=== PATIENT | female | born 1930 | race Caucasian/White ===

== ENCOUNTER 2017-10-25 09:17 | Emergency (ER) | payer MEDICARE ==
[2016-10-06 13:04] VITALS: BMI 28.6
[~2017-10-25 09:17] MED LIST: BACTRIM DS TABL1 TAB PO; CARTIA XT120 MG PO; COUMADIN5 MG PO; FUROSEMIDE20 MG; HCTZ25 MG PO; HYDROCODONE-APA1 TAB PO; PACERONE200 MG PO
== END 2017-10-25 12:35 | disposition home or self-care (01) ==
LOC: D.ER 09:17
DX: M54.5 Low back pain (principal); M62.838 Other muscle spasm; S39.012A Strain of muscle, fascia and tendon of lower back, initial encounter; X58.XXXA Exposure to other specified factors, initial encounter; Y93.89 Activity, other specified; Y92.89 Other specified places as the place of occurrence of the external cause

== ENCOUNTER 2017-10-27 11:10 | Inpatient (IN) | payer MEDICARE ==
[~2017-10-27] VITALS: Ht 165.1 cm; Wt 68.7 kg
--- NOTE | ~2017-10-27 | OP ---
PATIENT NAME: NORMA LAGOS MEDICAL RECORD: [id number] :30 LOCATION:[id number] ADMISSION DATE:10/27/17 SURGEON: JAI WILKINSON MD DATE OF OPERATION: 10/31/2017 PREOPERATIVE DIAGNOSIS: T11 compression fracture secondary to osteoporosis. POSTOPERATIVE DIAGNOSIS: T11 compression fracture secondary to osteoporosis. PROCEDURE: T11 kyphoplasty and T11 bone biopsy with methyl methacrylate bone cement. DESCRIPTION AND TECHNIQUE: After induction of general endotracheal anesthesia, the patient was rolled prone on chest and hip rolls. The thoracic spine was prepped and draped in usual sterile fashion. Fluoroscopic x-ray and Jamshidi needle was used to cannulate the pedicles at T11. Kyphoplasty balloon was advanced through the cannula and inflated under fluoroscopic control. The balloon was deflated and then the void created was back filled with methyl methacrylate bone cement. Good position of the cement was confirmed with fluoroscopic x-ray. The cannula was withdrawn. Steri-Strips used to close the single stab incision. A sterile dressing was applied to the wound. The patient was awakened in good condition and taken to recovery. All counts were reported as correct. Estimated blood loss was minimal. TRANSINT:[id number] Voice Confirmation ID: [id number] DOCUMENT ID: [id number] JAI WILKINSON MD at 1420 CC: [id number] DICTATION DATE: 10/31/17 1450 MINGLE OPERATOR: 10/31/17 1540 DIS IN 11/06/17 [place] [id number] [place] [id number]
[2017-10-27 12:39] LABS: APPEARANCE CLEAR (CLEAR); COLOR YELLOW (YELLOW); SPECIFIC GRAVITY 1.015 (1.005-1.020)
[2017-10-27 12:40] LABS: BILIRUBIN NEGATIVE (NEGATIVE); GLUCOSE NEGATIVE (NEGATIVE); KETONE LARGE mg/dL (NEGATIVE); NITRITE NEGATIVE (NEGATIVE); PROTEIN 1+ mg/dL (NEGATIVE); UROBILINOGEN NORMAL (NORMAL)
[2017-10-27 12:41] LABS: AMORPHOUS SEDIMENT <1+ /lpf (NONE SEEN); BACTERIA FEW /hpf (NONE SEEN); EPITHELIAL CELLS 0-5 /hpf (0-5); MUCUS <1+ /lpf (NONE SEEN); RED CELLS - URINE 0-5 /hpf (0-5)
[2017-10-27 18:02] VITALS: BP 134/74; BMI 28.3
[2017-10-27 19:15] VITALS: BP 136/62
[2017-10-27] MEDS ORDERED: ZANAFLEX2 M1 PO (21:01)
[2017-10-27] MEDS ORDERED: KLONOPIN0.5 MG PO (21:03)
[2017-10-27] MEDS ORDERED: TORSEMIDE20 MG PO (21:08)
[2017-10-27] MEDS ORDERED: NORCO 7.5/325 T1 TA1 PO (21:09)
[2017-10-27 22:34] LABS: BASOPHILS 0.3 % (0-2); EOSINOPHILS 0.3 % (0-7); HEMATOCRIT 41.9 % (36.0-48.0); HEMOGLOBIN 13.3 g/dL (12-16); IMMATURE GRANULOCYTES 0.1 % (0-5); LYMPHOCYTES 13.8 % (15-50); MCH 29.1 pg (26.0-34.0); MCHC 31.7 g/dL (31.0-37.0); MCV 91.7 fL (80.0-100.0); MEAN PLATELET VOLUME 11.4 fL (7.4-10.4); MONOCYTES 7.1 % (2-11); NEUTROPHILS 78.4 % (40-80); PLATELET COUNT 276 10x3/uL (130-400); RBC 4.57 10x6/uL (4.00-5.40); RDW 14.8 % (11.5-14.5); WBC 9.5 10x3/uL (4.8-10.8)
[2017-10-27 22:39] LABS: INR 2.2 (0.85-1.17); PROTIME 23.8 SECONDS (11.6-15.0)
[2017-10-27 22:43] LABS: ANION GAP 9.1 mmol/L (8-16); CALCIUM 8.6 mg/dL (8.5-10.1); CARBON DIOXIDE 33.5 mmol/L (21.0-32.0); CREATININE - SERUM 1.2 mg/dL (0.6-1.3); POTASSIUM - SERUM 3.6 mmol/L (3.5-5.1)
[2017-10-28 00:02] VITALS: BP 145/65
[2017-10-28 04:30] VITALS: BP 130/53
[2017-10-28 06:33] LABS: BASOPHILS 0.4 % (0-2); HEMATOCRIT 43.4 % (36.0-48.0); HEMOGLOBIN 13.8 g/dL (12-16); IMMATURE GRANULOCYTES 0.1 % (0-5); LYMPHOCYTES 18.8 % (15-50); MCH 29.2 pg (26.0-34.0); MCHC 31.8 g/dL (31.0-37.0); MCV 91.8 fL (80.0-100.0); MEAN PLATELET VOLUME 11.5 fL (7.4-10.4); MONOCYTES 7.3 % (2-11); NEUTROPHILS 72.4 % (40-80); PLATELET COUNT 278 10x3/uL (130-400); RBC 4.73 10x6/uL (4.00-5.40); RDW 14.9 % (11.5-14.5); WBC 8.4 10x3/uL (4.8-10.8)
[2017-10-28 06:51] LABS: ANION GAP 10.9 mmol/L (8-16); CALCIUM 8.9 mg/dL (8.5-10.1); CARBON DIOXIDE 29.5 mmol/L (21.0-32.0); CREATININE - SERUM 1.1 mg/dL (0.6-1.3); POTASSIUM - SERUM 3.4 mmol/L (3.5-5.1)
[2017-10-28 07:41] VITALS: BP 134/70
[2017-10-28 10:07] VITALS: Ht 165.1 cm; Wt 68.7 kg
[2017-10-28 12:32] VITALS: BP 194/89
[2017-10-28 13:10] VITALS: BP 154/84
[2017-10-28 19:25] VITALS: BP 137/70
[2017-10-29 03:07] VITALS: BP 123/58
[2017-10-29 05:04] LABS: BASOPHILS 0.4 % (0-2); EOSINOPHILS 1.5 % (0-7); HEMATOCRIT 42.4 % (36.0-48.0); HEMOGLOBIN 13.2 g/dL (12-16); IMMATURE GRANULOCYTES 0.1 % (0-5); LYMPHOCYTES 16.7 % (15-50); MCH 28.8 pg (26.0-34.0); MCHC 31.1 g/dL (31.0-37.0); MCV 92.4 fL (80.0-100.0); MEAN PLATELET VOLUME 11.4 fL (7.4-10.4); MONOCYTES 8.7 % (2-11); NEUTROPHILS 72.6 % (40-80); PLATELET COUNT 271 10x3/uL (130-400); RBC 4.59 10x6/uL (4.00-5.40); RDW 14.8 % (11.5-14.5); WBC 6.9 10x3/uL (4.8-10.8)
[2017-10-29 05:14] LABS: INR 2.43 (0.85-1.17); PROTIME 25.8 SECONDS (11.6-15.0)
[2017-10-29 05:27] LABS: ANION GAP 7.1 mmol/L (8-16); CALCIUM 8.8 mg/dL (8.5-10.1); CARBON DIOXIDE 31.3 mmol/L (21.0-32.0); CREATININE - SERUM 1.1 mg/dL (0.6-1.3); POTASSIUM - SERUM 3.4 mmol/L (3.5-5.1)
[2017-10-29 07:20] VITALS: BP 136/85
[2017-10-29 12:05] VITALS: BP 113/53
[2017-10-29 19:15] VITALS: BP 136/60
[2017-10-29 23:43] VITALS: BP 137/69
[2017-10-30 04:15] VITALS: BP 148/73
[2017-10-30 06:48] LABS: BASOPHILS 0.4 % (0-2); EOSINOPHILS 1.3 % (0-7); HEMATOCRIT 43.7 % (36.0-48.0); HEMOGLOBIN 13.6 g/dL (12-16); IMMATURE GRANULOCYTES 0.3 % (0-5); LYMPHOCYTES 23.5 % (15-50); MCH 29.1 pg (26.0-34.0); MCHC 31.1 g/dL (31.0-37.0); MCV 93.6 fL (80.0-100.0); MEAN PLATELET VOLUME 11.7 fL (7.4-10.4); MONOCYTES 8.1 % (2-11); NEUTROPHILS 66.4 % (40-80); PLATELET COUNT 289 10x3/uL (130-400); RBC 4.67 10x6/uL (4.00-5.40); RDW 15.1 % (11.5-14.5)
[2017-10-30 07:05] LABS: PROTIME 21.3 SECONDS (11.6-15.0)
[2017-10-30 07:06] LABS: INR 1.91 (0.85-1.17)
[2017-10-30 07:07] LABS: ANION GAP 9.2 mmol/L (8-16); CALCIUM 8.6 mg/dL (8.5-10.1); CREATININE - SERUM 1.1 mg/dL (0.6-1.3); POTASSIUM - SERUM 3.2 mmol/L (3.5-5.1)
[2017-10-30 08:49] VITALS: BP 157/86
[2017-10-30 12:56] VITALS: BP 148/82
[2017-10-30 16:15] VITALS: BP 165/75
[2017-10-30 19:56] VITALS: BP 174/82
[2017-10-30 23:32] VITALS: BP 156/74
[2017-10-31 03:49] VITALS: BP 175/83
[2017-10-31 06:26] LABS: BASOPHILS 0.3 % (0-2); EOSINOPHILS 0.6 % (0-7); HEMATOCRIT 46.7 % (36.0-48.0); HEMOGLOBIN 14.7 g/dL (12-16); IMMATURE GRANULOCYTES 0.3 % (0-5); LYMPHOCYTES 17.1 % (15-50); MCH 29.4 pg (26.0-34.0); MCHC 31.5 g/dL (31.0-37.0); MCV 93.4 fL (80.0-100.0); MEAN PLATELET VOLUME 11.3 fL (7.4-10.4); MONOCYTES 7.8 % (2-11); NEUTROPHILS 73.9 % (40-80); RDW 15.1 % (11.5-14.5)
[2017-10-31 06:27] LABS: WBC 10.8 10x3/uL (4.8-10.8)
[2017-10-31 06:28] LABS: PLATELET COUNT 353 10x3/uL (130-400)
[2017-10-31 06:41] LABS: PROTIME 17.5 SECONDS (11.6-15.0)
[2017-10-31 06:45] LABS: INR 1.48 (0.85-1.17)
[2017-10-31 06:47] LABS: ANION GAP 9.7 mmol/L (8-16); CALCIUM 9.1 mg/dL (8.5-10.1); CARBON DIOXIDE 32.9 mmol/L (21.0-32.0); POTASSIUM - SERUM 3.6 mmol/L (3.5-5.1)
[2017-10-31 06:53] LABS: CREATININE - SERUM 0.8 mg/dL (0.6-1.3)
[2017-10-31 09:26] VITALS: BP 176/92
[2017-10-31 12:19] VITALS: BP 168/88
[2017-10-31 15:01] VITALS: BP 153/84
[2017-10-31 20:00] VITALS: BP 164/92
[2017-11-01] VITALS: BP 129/61
[2017-11-01 06:08] LABS: BASOPHILS 0.2 % (0-2); HEMATOCRIT 45.3 % (36.0-48.0); HEMOGLOBIN 14.4 g/dL (12-16); IMMATURE GRANULOCYTES 0.2 % (0-5); LYMPHOCYTES 15.1 % (15-50); MCH 29.4 pg (26.0-34.0); MCHC 31.8 g/dL (31.0-37.0); MCV 92.4 fL (80.0-100.0); MONOCYTES 9.2 % (2-11); NEUTROPHILS 74.3 % (40-80); PLATELET COUNT 347 10x3/uL (130-400); RDW 15.4 % (11.5-14.5); WBC 9.7 10x3/uL (4.8-10.8)
[2017-11-01 06:22] LABS: INR 1.41 (0.85-1.17); PROTIME 16.8 SECONDS (11.6-15.0)
[2017-11-01 06:29] VITALS: BP 127/85
[2017-11-01 06:38] LABS: ANION GAP 10.5 mmol/L (8-16); CALCIUM 8.9 mg/dL (8.5-10.1); POTASSIUM - SERUM 3.5 mmol/L (3.5-5.1)
[2017-11-01 08:37] VITALS: BP 135/75
[2017-11-01 12:35] VITALS: BP 147/73
[2017-11-01 15:34] VITALS: BP 139/64
[2017-11-01 20:00] VITALS: BP 136/73
[2017-11-02] VITALS: BP 133/58
[2017-11-02 04:00] VITALS: BP 142/68
[2017-11-02 06:07] LABS: BASOPHILS 0.3 % (0-2); EOSINOPHILS 1.4 % (0-7); HEMATOCRIT 44.7 % (36.0-48.0); HEMOGLOBIN 14.1 g/dL (12-16); IMMATURE GRANULOCYTES 0.4 % (0-5); LYMPHOCYTES 19.5 % (15-50); MCH 29.3 pg (26.0-34.0); MCHC 31.5 g/dL (31.0-37.0); MCV 92.7 fL (80.0-100.0); MONOCYTES 6.7 % (2-11); NEUTROPHILS 71.7 % (40-80); PLATELET COUNT 327 10x3/uL (130-400); RBC 4.82 10x6/uL (4.00-5.40); RDW 15.4 % (11.5-14.5); WBC 10.9 10x3/uL (4.8-10.8)
[2017-11-02 06:31] LABS: ALBUMIN 2.7 g/dL (3.4-5.0); ANION GAP 9.1 mmol/L (8-16); BILIRUBIN - TOTAL 0.81 mg/dL (0.2-1.3); CALCIUM 8.7 mg/dL (8.5-10.1); CARBON DIOXIDE 32.3 mmol/L (21.0-32.0); POTASSIUM - SERUM 3.4 mmol/L (3.5-5.1)
[2017-11-02 06:37] LABS: INR 1.34 (0.85-1.17); PROTIME 16.1 SECONDS (11.6-15.0)
[2017-11-02 09:26] VITALS: BP 123/58
[2017-11-02 13:11] VITALS: BP 128/56
[2017-11-02 16:54] VITALS: BP 120/58
[2017-11-02 20:00] VITALS: BP 136/62
[2017-11-03 04:00] VITALS: BP 161/68
[2017-11-03 06:00] LABS: BASOPHILS 0.2 % (0-2); HEMATOCRIT 45.1 % (36.0-48.0); HEMOGLOBIN 14.3 g/dL (12-16); IMMATURE GRANULOCYTES 0.3 % (0-5); LYMPHOCYTES 18.6 % (15-50); MCH 29.5 pg (26.0-34.0); MCHC 31.7 g/dL (31.0-37.0); MEAN PLATELET VOLUME 11.5 fL (7.4-10.4); MONOCYTES 7.6 % (2-11); NEUTROPHILS 72.3 % (40-80); PLATELET COUNT 349 10x3/uL (130-400); RBC 4.85 10x6/uL (4.00-5.40); RDW 15.5 % (11.5-14.5); WBC 12.3 10x3/uL (4.8-10.8)
[2017-11-03 06:08] LABS: INR 1.52 (0.85-1.17); PROTIME 17.8 SECONDS (11.6-15.0)
[2017-11-03 06:30] LABS: ALBUMIN 2.8 g/dL (3.4-5.0); ANION GAP 9.5 mmol/L (8-16); BILIRUBIN - TOTAL 0.8 mg/dL (0.2-1.3); CALCIUM 9.2 mg/dL (8.5-10.1); CARBON DIOXIDE 31.2 mmol/L (21.0-32.0); CREATININE - SERUM 0.9 mg/dL (0.6-1.3); POTASSIUM - SERUM 3.7 mmol/L (3.5-5.1); PROTEIN - SERUM 6.3 g/dL (6.4-8.2)
[2017-11-03 09:36] VITALS: BP 183/99
[2017-11-03 12:49] VITALS: BP 160/76
[2017-11-03 16:35] VITALS: BP 168/74
[2017-11-04] VITALS: BP 146/67
[2017-11-04 04:00] VITALS: BP 118/69
[2017-11-04 05:51] LABS: BASOPHILS 0.2 % (0-2); EOSINOPHILS 1.1 % (0-7); HEMATOCRIT 43.4 % (36.0-48.0); HEMOGLOBIN 13.8 g/dL (12-16); IMMATURE GRANULOCYTES 0.2 % (0-5); LYMPHOCYTES 9.3 % (15-50); MCH 29.2 pg (26.0-34.0); MCHC 31.8 g/dL (31.0-37.0); MCV 91.9 fL (80.0-100.0); MEAN PLATELET VOLUME 11.2 fL (7.4-10.4); MONOCYTES 6.4 % (2-11); NEUTROPHILS 82.8 % (40-80); PLATELET COUNT 316 10x3/uL (130-400); RBC 4.72 10x6/uL (4.00-5.40); RDW 15.3 % (11.5-14.5)
[2017-11-04 05:52] LABS: WBC 9.1 10x3/uL (4.8-10.8)
[2017-11-04 06:09] LABS: INR 2.13 (0.85-1.17); PROTIME 23.2 SECONDS (11.6-15.0)
[2017-11-04 06:12] LABS: ALBUMIN 2.6 g/dL (3.4-5.0); BILIRUBIN - TOTAL 0.9 mg/dL (0.2-1.3); CALCIUM 8.6 mg/dL (8.5-10.1); CARBON DIOXIDE 30.6 mmol/L (21.0-32.0); CREATININE - SERUM 0.8 mg/dL (0.6-1.3); POTASSIUM - SERUM 3.6 mmol/L (3.5-5.1); PROTEIN - SERUM 5.4 g/dL (6.4-8.2)
[2017-11-04 07:56] VITALS: BP 144/61
[2017-11-04 12:23] VITALS: BP 161/81
[2017-11-04 16:00] VITALS: BP 148/85
[2017-11-05] VITALS: BP 156/89
[2017-11-05 06:13] LABS: BASOPHILS 0.2 % (0-2); EOSINOPHILS 0 % (0-7); HEMATOCRIT 44.7 % (36.0-48.0); HEMOGLOBIN 14.4 g/dL (12-16); IMMATURE GRANULOCYTES 0.4 % (0-5); LYMPHOCYTES 7.7 % (15-50); MCH 29.4 pg (26.0-34.0); MCHC 32.2 g/dL (31.0-37.0); MCV 91.4 fL (80.0-100.0); MEAN PLATELET VOLUME 11.6 fL (7.4-10.4); MONOCYTES 6.8 % (2-11); NEUTROPHILS 84.9 % (40-80); PLATELET COUNT 331 10x3/uL (130-400); RBC 4.89 10x6/uL (4.00-5.40); RDW 15.5 % (11.5-14.5); WBC 10.8 10x3/uL (4.8-10.8)
[2017-11-05 06:37] LABS: ALBUMIN 2.8 g/dL (3.4-5.0); ANION GAP 11.9 mmol/L (8-16); CALCIUM 8.9 mg/dL (8.5-10.1); CARBON DIOXIDE 30.3 mmol/L (21.0-32.0); POTASSIUM - SERUM 3.2 mmol/L (3.5-5.1); PROTEIN - SERUM 6.2 g/dL (6.4-8.2)
[2017-11-05 06:39] LABS: CREATININE - SERUM 1.1 mg/dL (0.6-1.3)
[2017-11-05 06:40] LABS: PROTIME 28.1 SECONDS (11.6-15.0)
[2017-11-05 06:41] LABS: INR 2.72 (0.85-1.17)
[2017-11-05 08:26] VITALS: BP 130/82
[2017-11-05 11:50] VITALS: BP 150/85
[2017-11-06] VITALS: BP 141/78
[2017-11-06 04:00] VITALS: BP 177/99
[2017-11-06 06:56] LABS: INR 3.22 (0.85-1.17); PROTIME 32.2 SECONDS (11.6-15.0)
[2017-11-06 07:06] LABS: BASOPHILS 0.1 % (0-2); EOSINOPHILS 0.1 % (0-7); HEMATOCRIT 43.6 % (36.0-48.0); HEMOGLOBIN 13.9 g/dL (12-16); IMMATURE GRANULOCYTES 0.3 % (0-5); LYMPHOCYTES 6.9 % (15-50); MCHC 31.9 g/dL (31.0-37.0); MCV 90.8 fL (80.0-100.0); MEAN PLATELET VOLUME 11.6 fL (7.4-10.4); MONOCYTES 9.2 % (2-11); NEUTROPHILS 83.4 % (40-80); PLATELET COUNT 273 10x3/uL (130-400); RDW 15.5 % (11.5-14.5); WBC 7.7 10x3/uL (4.8-10.8)
[2017-11-06 07:27] LABS: ALBUMIN 2.7 g/dL (3.4-5.0); ANION GAP 12.1 mmol/L (8-16); BILIRUBIN - TOTAL 0.86 mg/dL (0.2-1.3); CALCIUM 8.7 mg/dL (8.5-10.1); CARBON DIOXIDE 29.5 mmol/L (21.0-32.0); CREATININE - SERUM 0.9 mg/dL (0.6-1.3); POTASSIUM - SERUM 3.6 mmol/L (3.5-5.1); PROTEIN - SERUM 5.9 g/dL (6.4-8.2)
[2017-11-06 08:36] VITALS: BP 137/76
[2017-11-06 12:02] VITALS: BP 126/57
[2017-11-06 16:09] VITALS: BP 149/84
== END 2017-11-06 16:41 | disposition home health service (06) | DRG 479 ==
LOC: D.ER 11:10 → D.MS 15:20 → D.WS 15:20 → D.MS 10-29 22:36 → D.SDCHOLD 11-05 15:39 → D.MS 11-05 15:45
PROVIDERS: Emergency Medicine; Neurological Surgery
PROC: 0PU43JZ Supplement Thoracic Vertebra with Synthetic Substitute, Percutaneous Approach (ICD-10-PCS; 2017-10-31)
PROC: 0PB43ZX Excision of Thoracic Vertebra, Percutaneous Approach, Diagnostic (ICD-10-PCS; 2017-10-31)
PROC: 0PS43ZZ Reposition Thoracic Vertebra, Percutaneous Approach (ICD-10-PCS; principal; 2017-10-31 09:00)
DX: M80.88XA Other osteoporosis with current pathological fracture, vertebra(e), initial encounter for fracture (principal); V49.9XXA Car occupant (driver) (passenger) injured in unspecified traffic accident, initial encounter; M48.56XD Collapsed vertebra, not elsewhere classified, lumbar region, subsequent encounter for fracture with routine healing; I48.91 Unspecified atrial fibrillation; I10 Essential (primary) hypertension; E78.5 Hyperlipidemia, unspecified; I50.9 Heart failure, unspecified; G89.29 Other chronic pain; M54.5 Low back pain

== ENCOUNTER 2018-01-22 10:57 | Observation (INO) | payer MEDICARE ==
[~2018-01-22] VITALS: Ht 162.6 cm; Wt 64.4 kg
[~2018-01-22 10:57] MED LIST changes: +KLONOPIN0.5 MG PO; +NORCO 7.5/325 T1 TA1 PO; +TORSEMIDE20 MG PO; +ZANAFLEX2 M1 PO
[2018-01-22 12:58] LABS: BASOPHILS 0.1 % (0-2); EOSINOPHILS 0.1 % (0-7); HEMATOCRIT 45.5 % (36.0-48.0); HEMOGLOBIN 15.1 g/dL (12-16); IMMATURE GRANULOCYTES 0.4 % (0-5); LYMPHOCYTES 5.6 % (15-50); MCH 30.9 pg (26.0-34.0); MCHC 33.2 g/dL (31.0-37.0); MEAN PLATELET VOLUME 12.1 fL (7.4-10.4); NEUTROPHILS 87.8 % (40-80); PLATELET COUNT 256 10x3/uL (130-400); RBC 4.89 10x6/uL (4.00-5.40); WBC 16.2 10x3/uL (4.8-10.8)
[2018-01-22 13:16] LABS: ALBUMIN 3.3 g/dL (3.4-5.0); ALKALINE PHOSPHATASE 95 U/L (46-116); ALT (SGPT) 28 U/L (10-68); CALC OSMOLALITY 283 mosm/kg (275-300); CALCIUM 9.2 mg/dL (8.5-10.1); CARBON DIOXIDE 24.3 mmol/L (21.0-32.0); CHLORIDE - SERUM 98 mmol/L (98-107); CREATININE - SERUM 2.5 mg/dL (0.6-1.3); GLUCOSE 91 mg/dL (74-106); POTASSIUM - SERUM 4.9 mmol/L (3.5-5.1); SODIUM 135 mmol/L (136-145); UREA NITROGEN 52 mg/dL (7-18); eGFR NON AFRICAN AMERICAN 19 mL/min (90-120)
[2018-01-22 13:24] LABS: UDS - AMPHET NEGATIVE QUAL (NEGATIVE); UDS - BARB NEGATIVE QUAL (NEGATIVE); UDS - BENZO NEGATIVE QUAL (NEGATIVE); UDS - COCAINE NEGATIVE QUAL (NEGATIVE); UDS - OPIATE POSITIVE QUAL (NEGATIVE); UDS - PCP NEGATIVE QUAL (NEGATIVE); UDS - THC NEGATIVE QUAL (NEGATIVE)
[2018-01-22 13:26] LABS: CREATINE KINASE 94 UL (21-215); PRO BNP 1054 pg/mL (0-450)
[2018-01-22 13:28] LABS: TROPONIN-I < 0.017 ng/mL (0.000-0.060)
[2018-01-22 13:41] LABS: PROTIME > 120.0 SECONDS (11.6-15.0)
[2018-01-22 13:57] LABS: APPEARANCE SLT CLOUDY (CLEAR); BACTERIA FEW /hpf (NONE SEEN); BILIRUBIN NEGATIVE (NEGATIVE); COLOR YELLOW (YELLOW); EPITHELIAL CELLS 0-5 /hpf (0-5); GLUCOSE NEGATIVE (NEGATIVE); HYALINE CAST RARE /lpf (NONE SEEN); KETONE SMALL mg/dL (NEGATIVE); MUCUS <1+ /lpf (NONE SEEN); NITRITE NEGATIVE (NEGATIVE); PROTEIN TRACE mg/dL (NEGATIVE); RED CELLS - URINE 0-5 /hpf (0-5); SPECIFIC GRAVITY 1.015 (1.005-1.020); UROBILINOGEN NORMAL (NORMAL); WHITE CELLS - URINE OCC /hpf (0-5)
[2018-01-22 22:49] VITALS: BP 140/77
[2018-01-23 02:50] VITALS: BP 103/51
[2018-01-23 03:25] VITALS: BP 105/58
[2018-01-23 04:37] VITALS: BMI 24.4
[2018-01-23 07:41] VITALS: BP 108/57
[2018-01-23 08:24] LABS: BASOPHILS 0.1 % (0-2); EOSINOPHILS 0.1 % (0-7); IMMATURE GRANULOCYTES 0.3 % (0-5); LYMPHOCYTES 7.8 % (15-50); MCH 30.4 pg (26.0-34.0); MCHC 32.7 g/dL (31.0-37.0); MEAN PLATELET VOLUME 11.2 fL (7.4-10.4); MONOCYTES 7.2 % (2-11); NEUTROPHILS 84.5 % (40-80)
[2018-01-23 08:26] LABS: HEMATOCRIT 36.1 % (36.0-48.0); HEMOGLOBIN 11.8 g/dL (12-16); PLATELET COUNT 189 10x3/uL (130-400); RBC 3.88 10x6/uL (4.00-5.40); WBC 9.9 10x3/uL (4.8-10.8)
[2018-01-23 08:35] LABS: INR 1.93 (0.85-1.17); PROTIME 21.5 SECONDS (11.6-15.0)
[2018-01-23 08:44] LABS: ALBUMIN 3.3 g/dL (3.4-5.0); ANION GAP 14.8 mmol/L (8-16); BILIRUBIN - TOTAL 1.26 mg/dL (0.2-1.3); CALCIUM 8.7 mg/dL (8.5-10.1); CARBON DIOXIDE 28.1 mmol/L (21.0-32.0); CREATININE - SERUM 1.8 mg/dL (0.6-1.3); POTASSIUM - SERUM 3.9 mmol/L (3.5-5.1); PROTEIN - SERUM 6.3 g/dL (6.4-8.2)
[2018-01-23 11:10] VITALS: BP 95/49
[2018-01-23 15:16] VITALS: BP 96/55
[2018-01-23 22:24] VITALS: BP 103/61
[2018-01-24 02:24] VITALS: BP 108/64
[2018-01-24 05:25] VITALS: BP 96/45
[2018-01-24 06:02] LABS: BASOPHILS 0.2 % (0-2); EOSINOPHILS 0.4 % (0-7); HEMATOCRIT 34.5 % (36.0-48.0); HEMOGLOBIN 10.9 g/dL (12-16); IMMATURE GRANULOCYTES 0.2 % (0-5); LYMPHOCYTES 10.8 % (15-50); MCHC 31.6 g/dL (31.0-37.0); NEUTROPHILS 80.4 % (40-80); PLATELET COUNT 167 10x3/uL (130-400); RBC 3.63 10x6/uL (4.00-5.40); RDW 18.5 % (11.5-14.5)
[2018-01-24 06:17] LABS: ANION GAP 13.2 mmol/L (8-16); CARBON DIOXIDE 22.8 mmol/L (21.0-32.0); CREATININE - SERUM 1.4 mg/dL (0.6-1.3)
[2018-01-24 08:00] VITALS: BP 89/48
[2018-01-24 11:30] VITALS: BP 90/43
[2018-01-24 15:30] VITALS: BP 122/59
[2018-01-24 21:51] VITALS: BP 120/51
[2018-01-25 06:01] LABS: BASOPHILS 0.2 % (0-2); EOSINOPHILS 0.7 % (0-7); HEMATOCRIT 35.6 % (36.0-48.0); HEMOGLOBIN 11.3 g/dL (12-16); IMMATURE GRANULOCYTES 0.3 % (0-5); LYMPHOCYTES 12.5 % (15-50); MCH 30.1 pg (26.0-34.0); MCHC 31.7 g/dL (31.0-37.0); MCV 94.9 fL (80.0-100.0); MEAN PLATELET VOLUME 11.6 fL (7.4-10.4); NEUTROPHILS 80.3 % (40-80); PLATELET COUNT 190 10x3/uL (130-400); RBC 3.75 10x6/uL (4.00-5.40); RDW 18.3 % (11.5-14.5); WBC 9.7 10x3/uL (4.8-10.8)
[2018-01-25 06:16] LABS: INR 1.93 (0.85-1.17); PROTIME 21.5 SECONDS (11.6-15.0)
[2018-01-25 06:22] LABS: BILIRUBIN - TOTAL 0.8 mg/dL (0.2-1.3); CALCIUM 7.9 mg/dL (8.5-10.1); CREATININE - SERUM 1.1 mg/dL (0.6-1.3); PROTEIN - SERUM 5.5 g/dL (6.4-8.2)
[2018-01-25 06:28] LABS: ALBUMIN 2.4 g/dL (3.4-5.0); ANION GAP 11.3 mmol/L (8-16); POTASSIUM - SERUM 3.3 mmol/L (3.5-5.1)
[2018-01-25 09:38] VITALS: BP 139/78
[2018-01-25 15:04] VITALS: BP 106/52
[2018-01-25 16:01] VITALS: Ht 162.6 cm; Wt 64.4 kg
[2018-01-25 18:59] VITALS: BP 94/43
[2018-01-25 23:59] VITALS: BP 114/51
[2018-01-26 04:17] VITALS: BP 124/84
[2018-01-26 06:55] LABS: BASOPHILS 0.2 % (0-2); HEMATOCRIT 36.6 % (36.0-48.0); HEMOGLOBIN 11.4 g/dL (12-16); IMMATURE GRANULOCYTES 0.5 % (0-5); LYMPHOCYTES 15.4 % (15-50); MCH 29.7 pg (26.0-34.0); MCHC 31.1 g/dL (31.0-37.0); MCV 95.3 fL (80.0-100.0); MONOCYTES 4.6 % (2-11); NEUTROPHILS 77.3 % (40-80); PLATELET COUNT 198 10x3/uL (130-400); RBC 3.84 10x6/uL (4.00-5.40); RDW 18.4 % (11.5-14.5); WBC 8.7 10x3/uL (4.8-10.8)
[2018-01-26 07:14] LABS: ALBUMIN 2.4 g/dL (3.4-5.0); ANION GAP 11.9 mmol/L (8-16); BILIRUBIN - TOTAL 0.82 mg/dL (0.2-1.3); CALCIUM 8.2 mg/dL (8.5-10.1); CARBON DIOXIDE 23.7 mmol/L (21.0-32.0); CREATININE - SERUM 1.1 mg/dL (0.6-1.3); POTASSIUM - SERUM 3.6 mmol/L (3.5-5.1); PROTEIN - SERUM 5.6 g/dL (6.4-8.2)
[2018-01-26 08:40] VITALS: BP 140/71
[2018-01-26 13:03] VITALS: BP 150/71
[2018-01-26] MEDS ORDERED: LEVAQUIN500 MG PO (15:59)
[2018-01-26] MEDS ORDERED: FLORAJEN3 CAPS460 MG PO (15:59)
[2018-01-26 16:59] VITALS: BP 180/95
== END 2018-01-26 19:09 | disposition home health service (06) ==
LOC: D.ER 10:57 → D.MS 18:39 → D.EDHOLD 18:39 → OBSVTIME 18:39 → D.MS 18:42 → D.EDHOLD 18:42 → D.MS 01-26 19:09
PROVIDERS: Family Medicine; Family Medicine Adult Medicine; Internal Medicine Nephrology; Nurse Practitioner Family
DX: N39.0 Urinary tract infection, site not specified (principal); D68.9 Coagulation defect, unspecified; N17.9 Acute kidney failure, unspecified; T45.515A Adverse effect of anticoagulants, initial encounter; H91.90 Unspecified hearing loss, unspecified ear; D64.9 Anemia, unspecified; I48.91 Unspecified atrial fibrillation; F41.9 Anxiety disorder, unspecified

== ENCOUNTER 2018-02-03 14:21 | Emergency (ER) | payer MEDICARE ==
[2018-01-25 16:01] VITALS: BMI 24.3
[~2018-02-03 14:21] MED LIST changes: +FLORAJEN3 CAPS460 MG PO; +LEVAQUIN500 MG PO
== END 2018-02-03 17:32 | disposition home or self-care (01) ==
LOC: D.ER 14:21
DX: S01.01XA Laceration without foreign body of scalp, initial encounter (principal); W19.XXXA Unspecified fall, initial encounter; Y93.89 Activity, other specified; Y92.89 Other specified places as the place of occurrence of the external cause; S22.089A Unspecified fracture of T11-T12 vertebra, initial encounter for closed fracture; S32.039A Unspecified fracture of third lumbar vertebra, initial encounter for closed fracture; Z86.79 Personal history of other diseases of the circulatory system; Z79.01 Long term (current) use of anticoagulants

== ENCOUNTER 2018-02-27 08:33 | Inpatient (IN) | payer MEDICARE ==
[~2018-02-27] VITALS: Ht 162.6 cm; Wt 54.4 kg
[2018-02-27 09:29] LABS: BASOPHILS 0.1 % (0-2); EOSINOPHILS 0.2 % (0-7); HEMATOCRIT 52.8 % (36.0-48.0); HEMOGLOBIN 18.2 g/dL (12-16); IMMATURE GRANULOCYTES 0.6 % (0-5); LYMPHOCYTES 5.6 % (15-50); MCH 32.5 pg (26.0-34.0); MCHC 34.5 g/dL (31.0-37.0); MCV 94.3 fL (80.0-100.0); MONOCYTES 4.6 % (2-11); NEUTROPHILS 88.9 % (40-80); PLATELET COUNT 230 10x3/uL (130-400); WBC 16.5 10x3/uL (4.8-10.8)
[2018-02-27 09:47] LABS: APPEARANCE HAZY (CLEAR); BILIRUBIN NEGATIVE (NEGATIVE); COLOR YELLOW (YELLOW); GLUCOSE NEGATIVE (NEGATIVE); KETONE NEGATIVE (NEGATIVE); NITRITE NEGATIVE (NEGATIVE); PROTEIN NEGATIVE (NEGATIVE); SPECIFIC GRAVITY 1.015 (1.005-1.020); UROBILINOGEN NORMAL (NORMAL)
[2018-02-27 09:47] LABS: ALBUMIN 3.3 g/dL (3.4-5.0); ANION GAP 20.7 mmol/L (8-16); BILIRUBIN - TOTAL 0.76 mg/dL (0.2-1.3); CALCIUM 9.3 mg/dL (8.5-10.1); CARBON DIOXIDE 23.9 mmol/L (21.0-32.0); CREATININE - SERUM 3.9 mg/dL (0.6-1.3); POTASSIUM - SERUM 5.6 mmol/L (3.5-5.1); PROTEIN - SERUM 7.6 g/dL (6.4-8.2)
[2018-02-27 09:55] LABS: AMORPHOUS SEDIMENT <1+ /lpf (NONE SEEN); BACTERIA MANY /hpf (NONE SEEN); EPITHELIAL CELLS OCC /hpf (0-5); GRANULAR CAST RARE /lpf (NONE SEEN); HYALINE CAST 0-5 /lpf (NONE SEEN); RED CELLS - URINE >50 /hpf (0-5); WHITE CELLS - URINE 0-5 /hpf (0-5)
[2018-02-27 11:19] LABS: INR 15.61 (0.85-1.17); PROTIME 111.4 SECONDS (11.6-15.0)
[2018-02-27] MEDS ORDERED: PHILLIPS' LAXA100 MG PO (14:24)
[2018-02-27] MEDS ORDERED: PACERONE200 MG PO (14:25)
[2018-02-27] MEDS ORDERED: CORTISONE ACETA25 MG (14:26)
[2018-02-27] MEDS ORDERED: ALDACTONE25 MG PO (14:26)
[2018-02-27] MEDS ORDERED: CARTIA XT120 MG PO (14:27)
[2018-02-27] MEDS ORDERED: LASIX20 MG PO (14:45)
[2018-02-27 16:21] VITALS: BP 148/79
[2018-02-27 18:28] VITALS: BMI 20.6
[2018-02-27] MEDS ORDERED: BUMEX 1 MG TAB1 MG PO (19:05)
[2018-02-27] MEDS ORDERED: ZOFRAN4 MG PO (19:07)
[2018-02-27] MEDS ORDERED: ACETAMINOPHEN500 M1 PO (19:08)
[2018-02-27] MEDS ORDERED: COUMADIN5 MG PO (19:09)
[2018-02-27 20:59] VITALS: BP 112/60
[2018-02-28 06:13] VITALS: BP 110/66
[2018-02-28 07:35] LABS: BASOPHILS 0.1 % (0-2); EOSINOPHILS 0.1 % (0-7); HEMATOCRIT 47.5 % (36.0-48.0); HEMOGLOBIN 16.4 g/dL (12-16); IMMATURE GRANULOCYTES 0.4 % (0-5); LYMPHOCYTES 4.8 % (15-50); MCH 32.2 pg (26.0-34.0); MCHC 34.5 g/dL (31.0-37.0); MCV 93.1 fL (80.0-100.0); MEAN PLATELET VOLUME 11.9 fL (7.4-10.4); MONOCYTES 5.8 % (2-11); NEUTROPHILS 88.8 % (40-80); PLATELET COUNT 213 10x3/uL (130-400); RDW 14.9 % (11.5-14.5); WBC 15.8 10x3/uL (4.8-10.8)
[2018-02-28 07:53] LABS: ALBUMIN 2.8 g/dL (3.4-5.0); ANION GAP 19.8 mmol/L (8-16); BILIRUBIN - TOTAL 1.11 mg/dL (0.2-1.3); CALCIUM 8.7 mg/dL (8.5-10.1); CARBON DIOXIDE 21.5 mmol/L (21.0-32.0); CREATININE - SERUM 3.5 mg/dL (0.6-1.3); MAGNESIUM - SERUM 2.4 mg/dL (1.8-2.4); PHOSPHOROUS 4.5 mg/dL (2.5-4.9); POTASSIUM - SERUM 5.3 mmol/L (3.5-5.1); PROTEIN - SERUM 6.5 g/dL (6.4-8.2)
[2018-02-28 08:15] VITALS: BP 132/60
[2018-02-28 11:53] VITALS: BP 139/69
[2018-02-28 13:05] LABS: INR 16.56 (0.85-1.17); PROTIME 116.7 SECONDS (11.6-15.0)
[2018-02-28 15:46] VITALS: BP 142/79
[2018-02-28 21:22] VITALS: BP 104/54
[2018-03-01 01:10] VITALS: BP 126/59
[2018-03-01 05:09] VITALS: BP 117/62
[2018-03-01 05:12] LABS: BASOPHILS 0 % (0-2); EOSINOPHILS 0.1 % (0-7); HEMATOCRIT 45.5 % (36.0-48.0); HEMOGLOBIN 15.6 g/dL (12-16); IMMATURE GRANULOCYTES 0.5 % (0-5); LYMPHOCYTES 4.5 % (15-50); MCH 32.1 pg (26.0-34.0); MCHC 34.3 g/dL (31.0-37.0); MCV 93.6 fL (80.0-100.0); MEAN PLATELET VOLUME 12.1 fL (7.4-10.4); MONOCYTES 4.6 % (2-11); NEUTROPHILS 90.3 % (40-80); PLATELET COUNT 202 10x3/uL (130-400); RBC 4.86 10x6/uL (4.00-5.40); RDW 15.1 % (11.5-14.5)
[2018-03-01 05:17] LABS: WBC 10.6 10x3/uL (4.8-10.8)
[2018-03-01 05:37] LABS: ALBUMIN 2.6 g/dL (3.4-5.0); ANION GAP 16.9 mmol/L (8-16); BILIRUBIN - TOTAL 1.28 mg/dL (0.2-1.3); CALCIUM 8.6 mg/dL (8.5-10.1); CARBON DIOXIDE 22.9 mmol/L (21.0-32.0); MAGNESIUM - SERUM 2.3 mg/dL (1.8-2.4); POTASSIUM - SERUM 4.8 mmol/L (3.5-5.1); PROTEIN - SERUM 6.2 g/dL (6.4-8.2)
[2018-03-01 05:40] LABS: PHOSPHOROUS 3.3 mg/dL (2.5-4.9)
[2018-03-01 05:41] LABS: CREATININE - SERUM 2.4 mg/dL (0.6-1.3)
[2018-03-01 07:10] LABS: INR 12.24 (0.85-1.17)
[2018-03-01 09:42] VITALS: BP 116/66
[2018-03-01 12:39] VITALS: BP 91/52
[2018-03-01 13:50] VITALS: Ht 162.6 cm; Wt 54.4 kg
[2018-03-01 16:41] VITALS: BP 93/60
[2018-03-01 21:23] VITALS: BP 98/61
[2018-03-02] VITALS (7 sets, daily range): BP systolic 94–143; BP diastolic 42–74
[2018-03-02 06:55] LABS: BASOPHILS 0.1 % (0-2); EOSINOPHILS 0.2 % (0-7); HEMATOCRIT 37.3 % (36.0-48.0); HEMOGLOBIN 12.5 g/dL (12-16); IMMATURE GRANULOCYTES 0.5 % (0-5); LYMPHOCYTES 4.9 % (15-50); MCH 31.3 pg (26.0-34.0); MCHC 33.5 g/dL (31.0-37.0); MCV 93.3 fL (80.0-100.0); MEAN PLATELET VOLUME 11.1 fL (7.4-10.4); MONOCYTES 5.1 % (2-11); NEUTROPHILS 89.2 % (40-80); PLATELET COUNT 155 10x3/uL (130-400); RDW 14.6 % (11.5-14.5); WBC 8.6 10x3/uL (4.8-10.8)
[2018-03-02 07:14] LABS: ALBUMIN 2.3 g/dL (3.4-5.0); BILIRUBIN - TOTAL 1.68 mg/dL (0.2-1.3); CALCIUM 8.1 mg/dL (8.5-10.1); CARBON DIOXIDE 23.4 mmol/L (21.0-32.0); MAGNESIUM - SERUM 1.8 mg/dL (1.8-2.4); PROTEIN - SERUM 5.5 g/dL (6.4-8.2)
[2018-03-02 07:23] LABS: INR 1.64 (0.85-1.17); PROTIME 18.9 SECONDS (11.6-15.0)
[2018-03-02 07:29] LABS: ANION GAP 14.5 mmol/L (8-16); CREATININE - SERUM 1.6 mg/dL (0.6-1.3); PHOSPHOROUS 1.9 mg/dL (2.5-4.9); POTASSIUM - SERUM 3.9 mmol/L (3.5-5.1)
[2018-03-02 11:17] LABS: HEPATITIS C ANTIBODY <0.1 (0.0-0.9)
[2018-03-03 04:00] VITALS: BP 71/39
[2018-03-03 05:44] LABS: BASOPHILS 0.1 % (0-2); EOSINOPHILS 0.5 % (0-7); HEMATOCRIT 36.5 % (36.0-48.0); HEMOGLOBIN 12.2 g/dL (12-16); IMMATURE GRANULOCYTES 0.5 % (0-5); LYMPHOCYTES 6.4 % (15-50); MCH 31.4 pg (26.0-34.0); MCHC 33.4 g/dL (31.0-37.0); MCV 93.8 fL (80.0-100.0); MEAN PLATELET VOLUME 11.9 fL (7.4-10.4); MONOCYTES 5.2 % (2-11); NEUTROPHILS 87.3 % (40-80); PLATELET COUNT 172 10x3/uL (130-400); RBC 3.89 10x6/uL (4.00-5.40); RDW 14.9 % (11.5-14.5); WBC 7.9 10x3/uL (4.8-10.8)
[2018-03-03 06:22] LABS: INR 1.43 (0.85-1.17)
[2018-03-03 06:43] LABS: BILIRUBIN - TOTAL 1.42 mg/dL (0.2-1.3); CALCIUM 7.7 mg/dL (8.5-10.1); CARBON DIOXIDE 23.9 mmol/L (21.0-32.0); CREATININE - SERUM 1.3 mg/dL (0.6-1.3); MAGNESIUM - SERUM 1.5 mg/dL (1.8-2.4)
[2018-03-03 06:48] LABS: PHOSPHOROUS 1.5 mg/dL (2.5-4.9)
[2018-03-03 07:27] LABS: ANION GAP 13.5 mmol/L (8-16); POTASSIUM - SERUM 3.4 mmol/L (3.5-5.1)
[2018-03-03 08:00] VITALS: BP 71/48
[2018-03-03] MEDS ORDERED: ELIQUIS2.5 MG PO (10:10)
[2018-03-03 11:39] VITALS: BP 92/56
[2018-03-03 15:52] VITALS: BP 99/61
[2018-03-03 20:58] VITALS: BP 100/54
[2018-03-04 05:03] LABS: BASOPHILS 0.1 % (0-2); EOSINOPHILS 0.7 % (0-7); HEMATOCRIT 36.4 % (36.0-48.0); HEMOGLOBIN 12.1 g/dL (12-16); IMMATURE GRANULOCYTES 0.5 % (0-5); LYMPHOCYTES 6.8 % (15-50); MCH 31.2 pg (26.0-34.0); MCHC 33.2 g/dL (31.0-37.0); MCV 93.8 fL (80.0-100.0); MEAN PLATELET VOLUME 11.1 fL (7.4-10.4); MONOCYTES 5.2 % (2-11); NEUTROPHILS 86.7 % (40-80); PLATELET COUNT 138 10x3/uL (130-400); RBC 3.88 10x6/uL (4.00-5.40); RDW 15.2 % (11.5-14.5); WBC 8.1 10x3/uL (4.8-10.8)
[2018-03-04 05:19] LABS: INR 1.33 (0.85-1.17)
[2018-03-04 05:24] LABS: ALBUMIN 1.7 g/dL (3.4-5.0); ANION GAP 15.7 mmol/L (8-16); BILIRUBIN - TOTAL 0.65 mg/dL (0.2-1.3); CALCIUM 7.6 mg/dL (8.5-10.1); CARBON DIOXIDE 22.2 mmol/L (21.0-32.0); CREATININE - SERUM 1.2 mg/dL (0.6-1.3); MAGNESIUM - SERUM 1.5 mg/dL (1.8-2.4); POTASSIUM - SERUM 3.9 mmol/L (3.5-5.1); PROTEIN - SERUM 4.8 g/dL (6.4-8.2)
[2018-03-04 05:34] LABS: PHOSPHOROUS 1.9 mg/dL (2.5-4.9)
[2018-03-04 05:58] VITALS: BP 111/49
[2018-03-04 07:49] VITALS: BP 90/70
[2018-03-04 10:57] VITALS: BP 96/73
[2018-03-04 15:11] VITALS: BP 102/63
[2018-03-04 21:42] VITALS: BP 111/53
[2018-03-05 04:04] LABS: APPEARANCE HAZY (CLEAR); BACTERIA NONE SEEN /hpf (NONE SEEN); BILIRUBIN NEGATIVE (NEGATIVE); COLOR DK YELLOW (YELLOW); EPITHELIAL CELLS 0-5 /hpf (0-5); GLUCOSE NEGATIVE (NEGATIVE); KETONE NEGATIVE (NEGATIVE); NITRITE NEGATIVE (NEGATIVE); PROTEIN TRACE mg/dL (NEGATIVE); SPECIFIC GRAVITY 1.015 (1.005-1.020); TALC POWDER CRYSTALS 0-5 /hpf (NONE SEEN); WHITE CELLS - URINE NSEEN /hpf (0-5)
[2018-03-05 05:32] VITALS: BP 120/68
[2018-03-05 07:07] LABS: INR 1.32 (0.85-1.17)
[2018-03-05 07:40] VITALS: BP 129/62
[2018-03-05 11:52] VITALS: BP 132/69
[2018-03-05 15:24] VITALS: BP 126/63
== END 2018-03-05 17:34 | disposition home health service (06) | DRG 683 ==
LOC: D.ER 08:33 → D.M2 11:31 → D.EDHOLD 11:31 → D.M2 11:33
PROVIDERS: Emergency Medicine; Family Medicine; Internal Medicine Nephrology
DX: N17.9 Acute kidney failure, unspecified (principal); D68.9 Coagulation defect, unspecified; N39.0 Urinary tract infection, site not specified; T45.515A Adverse effect of anticoagulants, initial encounter; B96.20 Unspecified Escherichia coli [E. coli] as the cause of diseases classified elsewhere; I48.2 Chronic atrial fibrillation; I11.0 Hypertensive heart disease with heart failure; I50.9 Heart failure, unspecified; F41.9 Anxiety disorder, unspecified; E87.5 Hyperkalemia; E86.0 Dehydration; D75.1 Secondary polycythemia